=== PATIENT | female | born 1945 | race Caucasian/White ===

== ENCOUNTER 2016-11-24 17:27 | Emergency (ER) | payer MEDICARE, OTHER ==
--- NOTE | 2016-12-09 08:13 | ER ---
ADMIT: 11/24/2016 RM/LOC: ER [facility] [place] MR#: [id number] [address] [id number] ALBERTINA FAULKNER [address] [place] [address] Emergency Room Report SEX: F AGE: 71 : 1945 DATE: 11/24/2016 ADDENDUM: CHIEF COMPLAINT: Known right shoulder fracture. HISTORY OF PRESENT ILLNESS: This is a 71-year-old, who was sent over from [place] for a proximal humerus fracture. There was a question of dislocation. I called Dr. Canada as soon as the patient arrived. He requested a CT. We CT'd her shoulder and it is negative for any dislocation. Sending her home with a sling, Grethel for pain, Phenergan for nausea, and have her follow up with Dr. Canada tomorrow. CLINICAL IMPRESSION: Closed fracture of the proximal right humerus. DAVID Romo / Tee Gauthier MD / andres JOB #: [id number] CC: Tee Gauthier MD, Attending Physician Rashid Hatch MD, Family Physician
== END 2016-11-24 19:15 | disposition home or self-care (01) ==
LOC: ER 17:27
DX: S42.211A Unspecified displaced fracture of surgical neck of right humerus, initial encounter for closed fracture (principal); G47.30 Sleep apnea, unspecified; I10 Essential (primary) hypertension; Z90.710 Acquired absence of both cervix and uterus; Z79.899 Other long term (current) drug therapy; W18.09XA Striking against other object with subsequent fall, initial encounter; Y92.009 Unspecified place in unspecified non-institutional (private) residence as the place of occurrence of the external cause